=== PATIENT | female | born 2000 | race African-American/Black ===

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

== ENCOUNTER 2019-01-03 18:31 | Emergency (ER) | payer OTHER, MEDICAID ==
--- NOTE | 2019-01-03 19:47 | ER Document Report ---
ED Medical Screen (RME) - General Chief Complaint: Abdominal Pain Stated Complaint: ABDOMINAL PAIN Time Seen by Provider: 01/03/19 19:39 Primary Care Provider: DAVE CARY DO [Primary Care Provider] - Follow up as needed Mode of Arrival: Ambulatory Information source: Patient Notes: This 18-year-old female presents emergency department with the urge to urinate frequently and diarrhea every hour since Wednesday. Patient reports he is taken Imodium without relief of the diarrhea. Reports she has not been on antibiotics recently not been overseas recently. Reports she is eating drinking fine. Reports she may have lost 7 pounds. She denies fever and vomiting. She reports no other family members ill. She did take out family members Phenergan and it did not help her. I have greeted and performed a rapid initial assessment of this patient. A comprehensive ED assessment and evaluation of the patient, analysis of test results and completion of the medical decision making process will be conducted by additional ED providers. Dictation of this chart was performed using voice recognition software; therefore, there may be some unintended grammatical errors. TRAVEL OUTSIDE OF THE [place] IN LAST 30 DAYS: No - Related Data Allergies/Adverse Reactions: No Known Allergies Allergy (Verified 01/03/19 18:32) Past Medical History - Social History Frequency of alcohol use: None Drug Abuse: None Renal/ Medical History: Denies: Hx Peritoneal Dialysis Physical Exam - Vital signs Vitals: Temp Pulse Resp BP Pulse Ox 97.8 F 113 H 18 114/65 100 01/03/19 18:34 01/03/19 18:34 01/03/19 18:34 01/03/19 18:34 01/03/19 18:34 Course - Vital Signs Vital signs: Temp Pulse Resp BP Pulse Ox 97.8 F 113 H 18 114/65 100 01/03/19 18:34 01/03/19 18:34 01/03/19 18:34 01/03/19 18:34 01/03/19 18:34 Doctor's Discharge - Discharge Referrals: DAVE CARY DO [Primary Care Provider] - Follow up as needed
[2019-01-03 20:10] LABS: ABSOLUTE EOSINOPHILS # (AUTO) 0.3 10^3/uL (0.0-0.6); ABSOLUTE LYMPHOCYTES (AUTO) 3.3 10^3/uL (0.5-4.7); ABSOLUTE MONOCYTES (AUTO) 0.5 10^3/uL (0.1-1.4); ABSOLUTE NEUT (AUTO) 2.6 10^3/uL (1.7-8.2); BASOPHILS % (AUTO) 0.6 % (0-2); EOSINOPHILS % (AUTO) 4.1 % (0-6); HEMATOCRIT 41.3 % (36.0-47.0); HEMOGLOBIN 13.5 g/dL (12.0-15.5); MEAN CORPUSCULAR HEMOGLOBIN 28.6 pg (27.0-33.4); MEAN CORPUSCULAR HGB CONC 32.7 g/dL (32.0-36.0); MEAN CORPUSCULAR VOLUME 88 fl (80-97); MONOCYTES % (AUTO) 7.3 % (3-13); PLATELET COUNT 297 10^3/uL (150-450); RED BLOOD COUNT 4.72 10^6/uL (3.72-5.28); RED CELL DISTRIBUTION WIDTH 14.2 % (11.5-14.0); TOTAL CELLS COUNTED % (AUTO) 100 %; WHITE BLOOD COUNT 6.7 10^3/uL (4.0-10.5)
[2019-01-03 20:22] LABS: APPEARANCE,URINE SLIGHTLY-CLOUDY; BILIRUBIN,URINE NEGATIVE (NEGATIVE); COLOR,URINE YELLOW; GLUCOSE, URINE NEGATIVE (NEGATIVE); KETONES,URINE NEGATIVE (NEGATIVE); LEUKOCYTE ESTERASE,URINE TRACE (NEGATIVE); NITRITE,URINE NEGATIVE (NEGATIVE); PROTEIN,URINE NEGATIVE (NEGATIVE); URINE SPECIFIC GRAVITY 1.019
--- NOTE | 2019-01-03 20:22 | RADIOLOGY REPORT (SQ) ---
EXAM DESCRIPTION: Supine KUB. CLINICAL HISTORY: 18 years Female, abd pain diarrhea COMPARISON: None. FINDINGS: Bowel pattern is unremarkable. No suspicious soft tissue calcific abnormalities. IMPRESSION: Unremarkable KUB.
[2019-01-03 20:30] LABS: ALANINE AMINOTRANSFERASE 15 U/L (5-35); ALBUMIN 4.8 g/dL (3.7-5.6); ALKALINE PHOSPHATASE 49 U/L (50-135); ANION GAP 12 (5-19); ASPARTATE AMINO TRANSFERASE 24 U/L (5-30); BILIRUBIN,DIRECT 0.1 mg/dL (0.0-0.4); BILIRUBIN,TOTAL 0.7 mg/dL (0.2-1.3); BLOOD UREA NITROGEN 11 mg/dL (7-20); CALCIUM 10.1 mg/dL (8.4-10.2); CARBON DIOXIDE 24 mmol/L (22-30); CHLORIDE 104 mmol/L (98-107); GLUCOSE 78 mg/dL (75-110); POTASSIUM 3.8 mmol/L (3.6-5.0); SODIUM 139.7 mmol/L (137-145); TOTAL PROTEIN 8.4 g/dL (6.3-8.2)
--- NOTE | 2019-01-03 23:39 | ER Document Report ---
ED General - General Chief Complaint: Abdominal Pain Stated Complaint: ABDOMINAL PAIN Time Seen by Provider: 01/03/19 19:39 Primary Care Provider: DAVE CARY DO [ACTIVE STAFF] - Follow up as needed Mode of Arrival: Ambulatory Notes: 18-year-old healthy female presents emergency department with chief complaint of urinary frequency and urgency, and profuse diarrhea every hour since Wednesday. Patient states she has taken Imodium without relief of the diarrhea. No recent antibiotics. No overseas travel. Appetite is normal. Denies fever or vomiting. She was at a over the weekend and did eat food afterwards but there were no other sick contacts. She was also in a pool and ingested a large amount of water. She does have suprapubic abdominal pain. No other complaints TRAVEL OUTSIDE OF THE [place] IN LAST 30 DAYS: No - Related Data Allergies/Adverse Reactions: No Known Allergies Allergy (Verified 01/03/19 18:32) Past Medical History - General Information source: Patient - Social History Smoking Status: Never Smoker Frequency of alcohol use: None Drug Abuse: None Family History: Reviewed & Not Pertinent Patient has suicidal ideation: No Patient has homicidal ideation: No Renal/ Medical History: Denies: Hx Peritoneal Dialysis Review of Systems - Review of Systems Constitutional: See HPI EENT: See HPI Cardiovascular: See HPI Respiratory: No symptoms reported Gastrointestinal: See HPI Genitourinary: See HPI Female Genitourinary: See HPI Musculoskeletal: No symptoms reported Skin: No symptoms reported Hematologic/Lymphatic: No symptoms reported Neurological/Psychological: No symptoms reported Physical Exam - Vital signs Vitals: Temp Pulse Resp BP Pulse Ox 97.8 F 113 H 18 114/65 100 01/03/19 18:34 01/03/19 18:34 01/03/19 18:34 01/03/19 18:34 01/03/19 18:34 - Notes Notes: PHYSICAL EXAMINATION: Reviewed vital signs and charting by RN GENERAL: Alert, interacts well. No acute distress. HEAD: Normocephalic, atraumatic. EYES: Pupils equal and round. Extraocular movements intact. ENT: Oral mucosa moist, tongue midline. NECK: Full range of motion. Trachea midline. LUNGS: Clear to auscultation bilaterally, no wheezes, rales, or rhonchi. No respiratory distress. HEART: Regular rate and rhythm. No murmur ABDOMEN: soft, suprapubic tenderness. No distention. Bowel sounds present EXTREMITIES: Moves all 4 extremities spontaneously. No edema, No cyanosis. PSYCH: Normal affect, normal mood. SKIN: Warm, dry, normal turgor. No rashes or lesions noted. Course - Re-evaluation Re-evalutation: 01/03/19 23:36 Overall well-appearing. Afebrile. Patient still has profuse diarrhea. KUB normal. Urinalysis unremarkable. I will send urine for culture. At this time patient has a very reassuring physical exam and I do not suspect an infectious source but could be viral. No evidence of dehydration on labs or clinical exam. Patient has been given anticipatory guidance and strict follow on precautions. Stable for discharge 01/03/19 23:38 - Vital Signs Vital signs: Temp Pulse Resp BP Pulse Ox 97.8 F 113 H 18 114/65 100 01/03/19 18:34 01/03/19 18:34 01/03/19 18:34 01/03/19 18:34 01/03/19 18:34 - Laboratory Result Diagrams: 01/03/19 20:00 01/03/19 20:00 Laboratory results interpreted by me: 01/03/19 01/03/19 01/03/19 20:00 20:00 20:00 RDW 14.2 H Seg Neutrophils % 39.0 L Lymphocytes % 49.0 H Alkaline Phosphatase 49 L Total Protein 8.4 H Urine Urobilinogen 2.0 H Ur Leukocyte Esterase TRACE H Discharge - Discharge Clinical Impression: Urinary frequency, Urinary urgency Diarrhea Qualifiers: Diarrhea type: presumed infectious Qualified Code(s): R19.7 - Diarrhea, unspe cified Condition: Good Disposition: HOME, SELF-CARE Additional Instructions: You were seen in the emergency department this evening for diarrhea and urinary symptoms. Your urinalysis did not show a clear-cut UTI but I have sent your urine for culture. If it does grow out some type of bacteria you will need to call from the culture nurse and placed on an appropriate antibiotic. Is unclear why you are having the diarrhea but because you were recently at a that could be a potential source or ingesting water in a pool could cause diarrhea as well. Nonetheless your work-up was very reassuring and it should pass in the next several days. If you do continue to have profuse watery diarrhea over the next several days please return here for reevaluation or follow-up with your primary doctor. If you develop fevers or chills, intractable nausea or vomiting, acute shortness of breath or chest pain, or any other concerning symptoms please merely return to the emergency department. Referrals: DAVE CARY DO [ACTIVE STAFF] - Follow up as needed
[2019-01-04 00:13] VITALS: BP 120/74
== END 2019-01-04 00:05 | disposition home or self-care (01) ==
LOC: ER 18:31
DX: R35.0 Frequency of micturition (principal); R39.15 Urgency of urination; R19.7 Diarrhea, unspecified; R10.30 Lower abdominal pain, unspecified
CPT/HCPCS: 36415; 74018; 80053; 81001; 81025; 85025; 87086; 87088; 99284

== ENCOUNTER 2019-03-18 20:08 | Emergency (ER) | payer OTHER, MEDICAID ==
[2019-03-18 22:21] LABS: APPEARANCE,URINE CLEAR; BILIRUBIN,URINE NEGATIVE (NEGATIVE); COLOR,URINE YELLOW; GLUCOSE, URINE NEGATIVE (NEGATIVE); KETONES,URINE NEGATIVE (NEGATIVE); LEUKOCYTE ESTERASE,URINE NEGATIVE (NEGATIVE); NITRITE,URINE NEGATIVE (NEGATIVE); PROTEIN,URINE 30 mg/dL (NEGATIVE); URINE SPECIFIC GRAVITY 1.016
--- NOTE | 2019-03-19 00:26 | ER Document Report ---
ED General - General Chief Complaint: Pain With Urination Stated Complaint: ABDOMINAL PAIN,CONSTIPATION,SINUS Time Seen by Provider: 03/18/19 23:03 Primary Care Provider: RAFAELA JUSTICE MD [Primary Care Provider] - Follow up as needed Notes: Patient is a 18-year-old female that comes emergency department for chief c omplaint of lower abdominal pain on both sides for the past several days with intermittent constipation, occasional discomfort with urination. She denies vaginal discharge, flank pain, fever/chills, nausea/vomiting. She states she is frequently constipated but she did have a normal bowel movement earlier. Patient also states that today she started getting congested and has a lot of running of her nose but she denies sore throat, cough, fever, headache, or ear pain. Patient denies any daily medications or past medical history. TRAVEL OUTSIDE OF THE [place] IN LAST 30 DAYS: No - Related Data Allergies/Adverse Reactions: No Known Allergies Allergy (Verified 01/03/19 18:32) Past Medical History - General Information source: Patient - Social History Smoking Status: Never Smoker Chew tobacco use (# tins/day): No Drug Abuse: None Lives with: Family Family History: Reviewed & Not Pertinent Patient has suicidal ideation: No Patient has homicidal ideation: No Renal/ Medical History: Denies: Hx Peritoneal Dialysis - Immunizations Immunizations up to date: Yes Hx Diphtheria, Pertussis, Tetanus Vaccination: Yes Review of Systems - Review of Systems Constitutional: See HPI EENT: See HPI Cardiovascular: No symptoms reported Respiratory: No symptoms reported Gastrointestinal: See HPI Genitourinary: See HPI Female Genitourinary: No symptoms reported Musculoskeletal: No symptoms reported Skin: No symptoms reported Hematologic/Lymphatic: No symptoms reported Neurological/Psychological: No symptoms reported Physical Exam - Vital signs Vitals: Temp Pulse Resp BP Pulse Ox 98.0 F 87 16 128/83 H 100 03/18/19 20:20 03/18/19 20:20 03/18/19 20:20 03/18/19 20:20 03/18/19 20:20 - Notes Notes: GENERAL: Alert, interacts well. No acute distress. HEAD: Normocephalic, atraumatic. EYES: Pupils equal, round, and reactive to light. Extraocular movements intact. ENT: Oral mucosa moist, tongue midline. Oropharynx unremarkable. Airway patent. Rhinorrhea and sinus congestion with frequent sniffing. Nontender sinuses. NECK: Full range of motion. Supple. Trachea midline. LUNGS: Clear to auscultation bilaterally, no wheezes, rales, or rhonchi. No respiratory distress. HEART: Regular rate and rhythm. No murmur ABDOMEN: Minimal tenderness of the lower abdomen which is very general. No guarding or rigidity. Normal bowel sounds. GENITOURINARY: Small amount of scattered whitish discharge, nontender cervix, no lesions, unremarkable otherwise. Exam performed with Judy LIND at bedside. EXTREMITIES: Moves all 4 extremities spontaneously. No edema, normal radial and dorsalis pedis pulses bilaterally. No cyanosis. BACK: no cervical, thoracic, lumbar midline tenderness. No saddle anesthesia, normal distal neurovascular exam. Moves all extremities in full range of motion. NEUROLOGICAL: Alert and oriented x3. Normal speech. Cranial nerves II through XII grossly intact. PSYCH: Normal affect, normal mood. SKIN: Warm, dry, normal turgor. No rashes or lesions noted. Course - Re-evaluation Re-evalutation: CBC, chemistry unremarkable. Urinalysis unremarkable. Pelvic exam performed after discussion of options with patient, she elected for this, this shows positive yeast but otherwise is unremarkable. She was treated for yeast. Patient has sinus congestion and drainage suggesting viral illness but her physical exam is very unremarkable otherwise with only minimal abdominal tenderness. I have a very low suspicion of acute abdomen. Patient recommended to take stool softeners because of her frequent constipation, discussed return precautions, discussed primary care follow-up. Patient states appreciation and agreement. Stable at time of discharge. - Vital Signs Vital signs: Temp Pulse Resp BP Pulse Ox 98.3 F 82 18 118/72 100 03/19/19 02:40 03/19/19 02:40 03/19/19 02:40 03/19/19 02:40 03/19/19 02:40 - Laboratory Result Diagrams: 03/19/19 00:35 03/19/19 00:35 Laboratory results interpreted by me: 03/18/19 03/19/19 21:50 00:35 RDW 14.3 H Lymph % (Auto) 50.9 H Seg Neutrophils % 39.3 L Urine Protein 30 H Urine Urobilinogen 2.0 H Discharge - Discharge Clinical Impression: Lower abdominal pain, Sinus congestion, Vaginal discharge Condition: Stable Disposition: HOME, SELF-CARE Additional Instructions: Your work-up shows a yeast infection but no concerning findings otherwise. Your evaluation is most consistent with a viral illness, use the Flonase nasal spray and Sudafed to help with this, you can take an antihistamine such as Benadryl at night to help with this as well. You have been treated for these infection. For the lower abdominal pain I recommend [id number] stool softener such as Colace to help with this. Stay hydrated, increase fiber in your diet. Follow-up with primary care. Return for any concerning symptoms including severe worsening pain, vomiting, difficulty breathing, fever, or any other concerning symptoms. Prescriptions: Fluticasone Propionate [Flonase Nasal [place] 50 Mcg/[place] 16 gm] 2 sprays NASL Q12 #1 inhaler Pseudoephedrine HCl [Sudafed 12 Hour] 120 mg PO Q12 PRN #14 tablet.er PRN Reason: Referrals: RAFAELA JUSTICE MD [Primary Care Provider] - Follow up as needed
[2019-03-19 00:40] LABS: RBCS (WET MOUNT) NO RBCS SEEN; T.VAGINALIS (WET MOUNT) NO TRICHOMONAS SEEN; WBCS (WET MOUNT) FEW WBCS SEEN; YEAST (WET MOUNT) YEAST SEEN
[2019-03-19 00:50] LABS: ABSOLUTE EOSINOPHILS # (AUTO) 0.1 10^3/uL (0.0-0.6); ABSOLUTE LYMPHOCYTES (AUTO) 3.5 10^3/uL (0.5-4.7); ABSOLUTE MONOCYTES (AUTO) 0.5 10^3/uL (0.1-1.4); ABSOLUTE NEUT (AUTO) 2.7 10^3/uL (1.7-8.2); BASOPHILS % (AUTO) 0.7 % (0-2); HEMATOCRIT 38.6 % (36.0-47.0); HEMOGLOBIN 12.7 g/dL (12.0-15.5); LYMPHOCYTES % (AUTO) 50.9 % (13-45); MEAN CORPUSCULAR HEMOGLOBIN 28.6 pg (27.0-33.4); MEAN CORPUSCULAR HGB CONC 32.9 g/dL (32.0-36.0); MEAN CORPUSCULAR VOLUME 87 fl (80-97); MONOCYTES % (AUTO) 7.1 % (3-13); PLATELET COUNT 268 10^3/uL (150-450); RED BLOOD COUNT 4.43 10^6/uL (3.72-5.28); RED CELL DISTRIBUTION WIDTH 14.3 % (11.5-14.0); SEGMENTED NEUTROPHILS % (AUTO) 39.3 % (42-78); TOTAL CELLS COUNTED % (AUTO) 100 %; WHITE BLOOD COUNT 6.9 10^3/uL (4.0-10.5)
[2019-03-19 01:04] LABS: ANION GAP 11 (5-19); BLOOD UREA NITROGEN 12 mg/dL (7-20); CALCIUM 9.8 mg/dL (8.4-10.2); CARBON DIOXIDE 25 mmol/L (22-30); CHLORIDE 104 mmol/L (98-107); GLUCOSE 95 mg/dL (75-110); POTASSIUM 3.6 mmol/L (3.6-5.0)
[2019-03-19] MEDS ORDERED: FLUCONAZOLE 100 MG TABLET PO ONE (01:31)
[2019-03-19 02:01] LABS: CHLAM PCR NOT DETECTED (NOT DETECT)
[2019-03-19 02:40] VITALS: BP 118/72
== END 2019-03-19 02:40 | disposition home or self-care (01) ==
LOC: ER 20:08
DX: K59.00 Constipation, unspecified (principal); R10.30 Lower abdominal pain, unspecified; R30.0 Dysuria; N89.8 Other specified noninflammatory disorders of vagina; R09.81 Nasal congestion; J34.89 Other specified disorders of nose and nasal sinuses; B37.9 Candidiasis, unspecified
CPT/HCPCS: 36415; 80048; 81001; 81025; 85025; 87210; 87491; 87591; 99284

== ENCOUNTER 2019-04-10 22:23 | Emergency (ER) | payer OTHER ==
[2019-04-10] MEDS ORDERED: ONDANSETRON 4 MG TAB.RAPDIS PO ONE (22:42)
--- NOTE | 2019-04-10 22:42 | ER Document Report ---
ED Medical Screen (RME) - General Chief Complaint: Nausea/Vomiting/Diarrhea Stated Complaint: VOMITING Time Seen by Provider: 04/10/19 22:39 Primary Care Provider: RAFAELA JUSTICE MD [Primary Care Provider] - Follow up as needed Mode of Arrival: Ambulatory Information source: Patient Notes: 19-year-old female presents to ED for complaint of generalized abdominal cr amping nausea vomiting and diarrhea since 6 AM this morning. She states she is vomited 4 times and had 3 or 4 diarrheal stools. States last menstrual period was April 06, 2019 she does not smoke she does not drink and she does not do any drugs. She is alert oriented respirations regular and unlabored speaking in full sentences walks with even steady gait. He denies any fevers. TRAVEL OUTSIDE OF THE [place] IN LAST 30 DAYS: No - Related Data Allergies/Adverse Reactions: No Known Allergies Allergy (Verified 01/03/19 18:32) Past Medical History Renal/ Medical History: Denies: Hx Peritoneal Dialysis - Immunizations Immunizations up to date: Yes Hx Diphtheria, Pertussis, Tetanus Vaccination: Yes Physical Exam - Vital signs Vitals: Temp Pulse Resp BP Pulse Ox 98.4 F 92 16 104/63 100 04/10/19 22:29 04/10/19 22:29 04/10/19 22:29 04/10/19 22:29 04/10/19 22:29 Course - Vital Signs Vital signs: Temp Pulse Resp BP Pulse Ox 98.4 F 92 16 104/63 100 04/10/19 22:29 04/10/19 22:29 04/10/19 22:29 04/10/19 22:29 04/10/19 22:29 Doctor's Discharge - Discharge Referrals: RAFAELA JUSTICE MD [Primary Care Provider] - Follow up as needed
[2019-04-10 23:50] LABS: ABSOLUTE EOSINOPHILS # (AUTO) 0.2 10^3/uL (0.0-0.6); ABSOLUTE LYMPHOCYTES (AUTO) 3.3 10^3/uL (0.5-4.7); ABSOLUTE MONOCYTES (AUTO) 0.3 10^3/uL (0.1-1.4); ABSOLUTE NEUT (AUTO) 2.8 10^3/uL (1.7-8.2); BASOPHILS % (AUTO) 0.7 % (0-2); EOSINOPHILS % (AUTO) 3.2 % (0-6); HEMATOCRIT 39.8 % (36.0-47.0); HEMOGLOBIN 12.9 g/dL (12.0-15.5); LYMPHOCYTES % (AUTO) 49.8 % (13-45); MEAN CORPUSCULAR HEMOGLOBIN 28.2 pg (27.0-33.4); MEAN CORPUSCULAR HGB CONC 32.4 g/dL (32.0-36.0); MEAN CORPUSCULAR VOLUME 87 fl (80-97); MONOCYTES % (AUTO) 4.7 % (3-13); PLATELET COUNT 270 10^3/uL (150-450); RED BLOOD COUNT 4.57 10^6/uL (3.72-5.28); RED CELL DISTRIBUTION WIDTH 14.4 % (11.5-14.0); SEGMENTED NEUTROPHILS % (AUTO) 41.6 % (42-78); TOTAL CELLS COUNTED % (AUTO) 100 %; WHITE BLOOD COUNT 6.6 10^3/uL (4.0-10.5)
[2019-04-11] MEDS ORDERED: NORMAL SALINE 1000 ML 1,000 ML IV ONE (00:03)
[2019-04-11 00:04] LABS: APPEARANCE,URINE CLEAR; BILIRUBIN,URINE NEGATIVE (NEGATIVE); COLOR,URINE YELLOW; GLUCOSE, URINE NEGATIVE (NEGATIVE); KETONES,URINE NEGATIVE (NEGATIVE); PROTEIN,URINE NEGATIVE (NEGATIVE); URINE SPECIFIC GRAVITY 1.021
[2019-04-11 00:11] LABS: ALBUMIN 4.7 g/dL (3.5-5.0); ALKALINE PHOSPHATASE 48 U/L (38-126); ANION GAP 13 (5-19); ASPARTATE AMINO TRANSFERASE 24 U/L (14-36); BILIRUBIN,DIRECT 0.1 mg/dL (0.0-0.4); BILIRUBIN,TOTAL 0.8 mg/dL (0.2-1.3); BLOOD UREA NITROGEN 16 mg/dL (7-20); CALCIUM 10.4 mg/dL (8.4-10.2); CARBON DIOXIDE 25 mmol/L (22-30); CHLORIDE 105 mmol/L (98-107); GLUCOSE 86 mg/dL (75-110); POTASSIUM 4.1 mmol/L (3.6-5.0); TOTAL PROTEIN 8.4 g/dL (6.3-8.2)
--- NOTE | 2019-04-11 00:28 | ER Document Report ---
ED GI/ - General Chief Complaint: Abdominal Pain Stated Complaint: VOMITING Time Seen by Provider: 04/10/19 22:39 Primary Care Provider: RAFAELA JUSTICE MD [ACTIVE STAFF] - Follow up as needed Mode of Arrival: Ambulatory Notes: Patient is a otherwise healthy 19-year-old female presents to the emergency department generalized nausea, vomiting, diarrhea that started this morning. Patient was that she has had 4 episodes of nonbloody emesis and 3 episodes of nonbloody diarrhea. She is also denying any dark black tarry stools. Patient's denying any dysuria, vaginal discharge, fever. States she has slight intermittent left upper quadrant cramping. TRAVEL OUTSIDE OF THE [place] IN LAST 30 DAYS: No - Related Data Allergies/Adverse Reactions: No Known Allergies Allergy (Verified 04/10/19 23:04) Past Medical History - General Information source: Patient - Social History Smoking Status: Never Smoker Chew tobacco use (# tins/day): No Frequency of alcohol use: None Drug Abuse: None Family History: Reviewed & Not Pertinent Patient has suicidal ideation: No Patient has homicidal ideation: No Renal/ Medical History: Denies: Hx Peritoneal Dialysis - Immunizations Immunizations up to date: Yes Hx Diphtheria, Pertussis, Tetanus Vaccination: Yes Review of Systems - Review of Systems Constitutional: denies: Fever EENT: No symptoms reported Cardiovascular: No symptoms reported Respiratory: No symptoms reported Gastrointestinal: See HPI Genitourinary: See HPI Female Genitourinary: No symptoms reported Musculoskeletal: No symptoms reported Skin: No symptoms reported Hematologic/Lymphatic: No symptoms reported Neurological/Psychological: No symptoms reported Physical Exam - Vital signs Vitals: Temp Pulse Resp BP Pulse Ox 98.4 F 92 16 104/63 100 04/10/19 22:29 04/10/19 22:29 04/10/19 22:29 04/10/19 22:29 04/10/19 22:29 - Notes Notes: GENERAL: Alert, interacts well. No acute distress. HEAD: Normocephalic, atraumatic. EYES: Pupils equal, round, and reactive to light. Extraocular movements intact. ENT: Oral mucosa moist, tongue midline. NECK: Full range of motion. Supple. Trachea midline. LUNGS: Clear to auscultation bilaterally, no wheezes, rales, or rhonchi. No respiratory distress. HEART: Regular rate and rhythm. No murmur ABDOMEN: Soft, slight left upper quadrant abdominal pain noted, otherwise abdominal exam benign. Non-distended. Bowel sounds present in all 4 quadrants. EXTREMITIES: Moves all 4 extremities spontaneously. No edema, normal radial and dorsalis pedis pulses bilaterally. No cyanosis. BACK: no cervical, thoracic, lumbar midline tenderness. No saddle anesthesia, normal distal neurovascular exam. No CVA tenderness noted bilaterally. NEUROLOGICAL: Alert and oriented x3. Normal speech. cranial nerves II through XII grossly intact. PSYCH: Normal affect, normal mood. SKIN: Warm, dry, normal turgor. No rashes or lesions noted. Course - Re-evaluation Re-evalutation: 04/11/19 00:25 Laboratory 04/10/19 04/10/19 04/10/19 23:19 23:19 23:19 WBC 6.6 RBC 4.57 Hgb 12.9 Hct 39.8 MCV 87 MCH 28.2 MCHC 32.4 RDW 14.4 H Plt Count 270 Lymph % (Auto) 49.8 H [place] % (Auto) 4.7 Eos % (Auto) 3.2 Baso % (Auto) 0.7 Absolute Neuts (auto) 2.8 Absolute Lymphs (auto) 3.3 Absolute Monos (auto) 0.3 Absolute Eos (auto) 0.2 Absolute Basos (auto) 0.0 Seg Neutrophils % 41.6 L Sodium 142.8 Potassium 4.1 Chloride 105 Carbon Dioxide 25 Anion Gap 13 BUN 16 Creatinine 0.91 Est GFR ( Amer) > 60 Est GFR (MDRD) Non-Af > 60 Glucose 86 Calcium 10.4 H Total Bilirubin 0.8 Direct Bilirubin 0.1 Neonat Total Bilirubin Not Reportable Neonat Direct Bilirubin Not Reportable Neonat Indirect Bili Not Reportable AST 24 ALT 10 Alkaline Phosphatase 48 Total Protein 8.4 H Albumin 4.7 Lipase 98.3 Serum HCG, Qual NEGATIVE Urine Color Urine Appearance Urine pH Ur Specific [place] Urine Protein Urine Glucose (UA) Urine Ketones Urine Blood Urine Nitrite (Reflex) Urine Bilirubin Urine Urobilinogen Leukocyte Esterase Rfl Urine RBC (Auto) Urine WBC (Reflex) Squamous Epi Cells Auto Urine Mucus (Auto) Urine Ascorbic Acid 04/10/19 23:38 WBC RBC Hgb Hct MCV MCH MCHC RDW Plt Count Lymph % (Auto) [place] % (Auto) Eos % (Auto) Baso % (Auto) Absolute Neuts (auto) Absolute Lymphs (auto) Absolute Monos (auto) Absolute Eos (auto) Absolute Basos (auto) Seg Neutrophils % Sodium Potassium Chloride Carbon Dioxide Anion Gap BUN Creatinine Est GFR ( Amer) Est GFR (MDRD) Non-Af Glucose Calcium Total Bilirubin Direct Bilirubin Neonat Total Bilirubin Neonat Direct Bilirubin Neonat Indirect Bili AST ALT Alkaline Phosphatase Total Protein Albumin Lipase Serum HCG, Qual Urine Color YELLOW Urine Appearance CLEAR Urine pH 6.0 Ur Specific [place] 1.021 Urine Protein NEGATIVE Urine Glucose (UA) NEGATIVE Urine Ketones NEGATIVE Urine Blood SMALL H Urine Nitrite (Reflex) NEGATIVE Urine Bilirubin NEGATIVE Urine Urobilinogen 2.0 H Leukocyte Esterase Rfl NEGATIVE Urine RBC (Auto) 1 Urine WBC (Reflex) 1 Squamous Epi Cells Auto 1 Urine Mucus (Auto) RARE Urine Ascorbic Acid NEGATIVE Patient's physical exam reveals slight left upper quadrant tenderness, most consistent with her generalized nausea, vomiting. Otherwise abdominal exam is benign. After fluids in the emergency department and antinausea medication patient voices she feels better. Patient has been able to drink fluids with no further episodes of vomiting. Discussed close follow-up with primary care provider with close return precautions. Patient stable for discharge. - Vital Signs Vital signs: Temp Pulse Resp BP Pulse Ox 98.4 F 92 16 104/63 100 04/10/19 22:29 04/10/19 22:29 04/10/19 22:29 04/10/19 22:29 04/10/19 22:29 - Laboratory Result Diagrams: 04/10/19 23:19 04/10/19 23:19 Laboratory results interpreted by me: 04/10/19 04/10/19 04/10/19 23:19 23:19 23:38 RDW 14.4 H Lymph % (Auto) 49.8 H Seg Neutrophils % 41.6 L Calcium 10.4 H Total Protein 8.4 H Urine Blood SMALL H Urine Urobilinogen 2.0 H Discharge - Discharge Clinical Impression: Nausea vomiting and diarrhea Condition: Stable Disposition: HOME, SELF-CARE Instructions: Antinausea Medication ([facility]), Viral Syndrome ([facility]), Vomiting ([facility]), Diarrhea, Nonspecific ([facility]) Additional Instructions: As we discussed you have been seen and treated in the emergency department for nausea, vomiting, diarrhea. Please make sure you use nausea medication as pres cribed. Please also try to stay well-hydrated with clear liquids. Please follow-up with your primary care provider in the next 12 to 24 hours. Return to the emergency room for any concerns. Prescriptions: Ondansetron [Zofran Odt 4 mg Tablet] 1 tab PO Q6 PRN #10 tab.rapdis PRN Reason: For Nausea/Vomiting Forms: Return to Work Referrals: RAFAELA JUSTICE MD [ACTIVE STAFF] - Follow up as needed
[2019-04-11 01:47] VITALS: BP 129/79
== END 2019-04-11 01:30 | disposition home or self-care (01) ==
LOC: ER 22:23
DX: R11.2 Nausea with vomiting, unspecified (principal); R19.7 Diarrhea, unspecified; R10.12 Left upper quadrant pain; R10.812 Left upper quadrant abdominal tenderness
CPT/HCPCS: 36415; 83690; 84703; 85025; 80053; 81001; S0119; J7030; 96360; 99284

== ENCOUNTER 2019-08-06 02:01 | Emergency (ER) | payer OTHER ==
[2019-08-06] MEDS ORDERED: KETOROLAC TROMETHAMINE 60 MG/2 ML SDV IM ONE (04:36)
--- NOTE | 2019-08-06 04:41 | ER Document Report ---
ED Respiratory Problem - General Chief Complaint: Cold Symptoms Stated Complaint: HEAD PAIN/TROUBLE BREATHING Time Seen by Provider: 08/06/19 04:24 Notes: CHIEF COMPLAINT: Sinus congestion for 4 days HPI: 19-year-old female who does not smoke presenting for 4 days of worsening facial and sinus congestion and pressure. States that she attempted to use the medication she was placed on 6 months ago when she was seen at the hospital for same complaint which was Sudafed and Flonase without resolution of symptoms. No fever. Patient states that the discomfort and pressure became too much tonight so she decided to come in for evaluation ROS: See HPI - all other systems were reviewed and are otherwise negative Constitutional: no fever Eyes: no drainage, no blurred vision ENT: Positive runny nose, no sore throat Cardiovascular: no chest pain Resp: no SOB, no cough GI: no vomiting, no diarrhea, no abdominal pain : no dysuria Integumentary: no rash Allergy: no hives Musculoskeletal: no extremity pain or swelling Neurological: no numbness/tingling, no weakness, positive frontal headache MEDICATIONS: I agree with the patient medications as charted by the RN. ALLERGIES: I agree with the allergies as charted by the RN. PAST MEDICAL HISTORY/PAST SURGICAL HISTORY: Reviewed and agree as charted by RN. SOCIAL HISTORY: Reviewed and agree as charted by RN. FAMILY HISTORY: No significant familial comorbid conditions directly related to patient complaint EXAM: Reviewed vital signs as charted by RN. CONSTITUTIONAL: Alert and oriented and responds appropriately to questions. Well-appearing; well-nourished, no acute distress HEAD: Normocephalic; atraumatic, EYES: PERRL; Conjunctivae clear, sclerae non-icteric ENT: normal nose; positive clear rhinorrhea; moist mucous membranes; pharynx without lesions noted, no uvula edema or deviation, no tonsillar hypertrophy, phonation normal, mild tenderness over the frontal sinuses NECK: Supple without meningismus; non-tender; no cervical lymphadenopathy, no masses CARD: RRR; no murmurs, no clicks, no rubs, no gallops; symmetric distal pulses RESP: Normal chest excursion without splinting or tachypnea; breath sounds clear and equal bilaterally; no wheezes, no rhonchi, no rales, pulse oximetry 99% on room air not hypoxic ABD/GI: Normal bowel sounds; non-distended; soft, non-tender BACK: The back appears normal and is non-tender to palpation, there is no CVA tenderness EXT: Normal ROM in all joints; non-tender to palpation; no cyanosis, no effusions, no edema SKIN: Normal color for age and race; warm; dry; good turgor; no acute lesions noted NEURO: Moves all extremities equally; Motor and sensory function intact PSYCH: The patient's mood and manner are appropriate. Grooming and personal hygiene are appropriate. MDM: 19-year-old female presenting with 4 days of sinus congestion and discomfort. Has been taking Sudafed and Flonase at home. Will switch patient to Mucinex, placed on Z-Roberto for sinus infection given her history, follow-up PCP TRAVEL OUTSIDE OF THE [place] IN LAST 30 DAYS: No - Related Data Allergies/Adverse Reactions: No Known Allergies Allergy (Verified 04/10/19 23:04) Past Medical History - Social History Smoking Status: Never Smoker Chew tobacco use (# tins/day): No Frequency of alcohol use: None Drug Abuse: None Family History: Reviewed & Not Pertinent Patient has suicidal ideation: No Patient has homicidal ideation: No Renal/ Medical History: Denies: Hx Peritoneal Dialysis - Immunizations Immunizations up to date: Yes Hx Diphtheria, Pertussis, Tetanus Vaccination: Yes Physical Exam - Vital signs Vitals: Temp Pulse Resp BP Pulse Ox 98.2 F 120 H 18 120/85 100 08/06/19 02:07 08/06/19 02:07 08/06/19 02:07 08/06/19 02:07 08/06/19 02:07 Course - Vital Signs Vital signs: Temp Pulse Resp BP Pulse Ox 98.2 F 99 18 120/85 100 08/06/19 02:07 08/06/19 02:14 08/06/19 02:07 08/06/19 02:07 08/06/19 02:07 Discharge - Discharge Clinical Impression: Sinusitis chronic, frontal Condition: Stable Disposition: HOME, SELF-CARE Instructions: Sinusitis ([facility]) Additional Instructions: Take the medications as prescribed. Follow-up with a primary care provider for reevaluation of symptoms call for appointment Prescriptions: Guaifenesin/Dextromethorphan [Mucinex Dm ER 600-30 mg Tablet] 1 each PO BID #10 tab.er.12h Diclofenac Sodium [Voltaren 50 Mg Tablet.Dr] 50 mg PO BID #20 tablet. Azithromycin [Zithromax 250 mg Tablet] 250 mg PO ASDIR PRN #6 tablet PRN Reason: Referrals: OVI SILVA MD [ACTIVE STAFF] - Follow up as needed
[2019-08-06 05:50] VITALS: BP 126/70
== END 2019-08-06 05:51 | disposition home or self-care (01) ==
LOC: ER 02:01
DX: J32.1 Chronic frontal sinusitis (principal); R51 Headache; R09.81 Nasal congestion; R09.89 Other specified symptoms and signs involving the circulatory and respiratory systems; Z79.899 Other long term (current) drug therapy
CPT/HCPCS: 99283; 96372; 81025; J1885

== ENCOUNTER 2019-10-03 07:00 | Emergency (ER) | payer OTHER ==
[2019-10-03] MEDS ORDERED: KETAMINE HCL INJ 500 MG/10 ML VIAL IV ONE (07:34)
[2019-10-03] MEDS ORDERED: HALOPERIDOL LACTATE INJ 5 MG/1 ML VIAL IM ONE (07:47)
[2019-10-03] MEDS ORDERED: BENZTROPINE MESYLATE INJ 2 MG/2 ML AMPULE IM ONE (07:48)
--- NOTE | 2019-10-03 08:06 | ER Document Report ---
Entered by ELIU MITCHELL SCRIBE 10/03/19 0731 Acting as scribe for:ZACHARY CHURCH MD ED Psych Disorder / Suicide - General Stated Complaint: ALTERED MENTAL STATUS/POSSIBLE OVERDOSE Time Seen by Provider: 10/03/19 07:08 Information source: Patient Cannot obtain history due to: Altered mental status Notes: This 19 year old female patient presents to the emergency department today with complaints of being found at a gas station off of [address] acutely psychotic. Patient was allegedly smashing wine bottles and beer cans throughout the gas station so law enforcement was called. EMS reports that the patient began spitting at law enforcement so she was given ketamine prior to arrival here. Patient initially engages in conversation but quickly covers her face with her hands and buries her head into the bed. TRAVEL OUTSIDE OF THE [place] IN LAST 30 DAYS: No - Related Data Allergies/Adverse Reactions: No Known Allergies Allergy (Verified 04/10/19 23:04) Past Medical History - General Information source: Patient Cannot obtain history due to: Altered mental status - Social History Smoking Status: Unknown if Ever Smoked Frequency of alcohol use: None Drug Abuse: None Lives with: Family Family History: Reviewed & Not Pertinent - Medical History Medical History: Negative Surgical Hx: Negative - Immunizations Immunizations up to date: Yes Hx Diphtheria, Pertussis, Tetanus Vaccination: Yes Review of Systems - Review of Systems -: Yes ROS unobtainable due to patient's medical condition - EMS administered ketamine to get patient under control. Acutely psychotic. Physical Exam - Vital signs Vitals: Pulse Ox 99 10/03/19 07:08 - Notes Notes: Physical Exam: General: Initially engages in conversation but quickly puts her hands over her face and buries her head into the bed. HEENT: Normocephalic. Atraumatic. PERRL. Extraocular movements intact. Orophary nx clear. Nystagmus. Neck: Supple. Non-tender. Respiratory: No respiratory distress. Clear and equal breath sounds bilaterally. Cardiovascular: Regular rate and rhythm. Abdominal: Normal Inspection. Non-tender. No distension. Normal Bowel Sounds. Back: No gross abnormalities. Extremities: Moves all four extremities. Upper extremities: Normal inspection. Normal ROM. Lower extremities: Normal inspection. No edema. Normal ROM. Psychological: Screaming God over and over, yelling that she wants a bible, screaming about coronavirus. Acutely psychotic, manic. Skin: Warm. Dry. Normal color. Course - Re-evaluation Re-evalutation: 10/03/19 07:36 Shortly after the patient arrived to the emergency room, the ketamine wore off and she became violent and had to be restrained. She was screaming loudly. She was repeatedly screaming "God, God,God. [place] virus, God I'm not crazy, and many nonsensical phrases. She was given ketamine 20 mg IV to see if that would calm her back down. - Vital Signs Vital signs: Temp Pulse Resp BP Pulse Ox 98.3 F 101 H 18 129/59 H 98 10/03/19 12:01 10/03/19 07:46 10/03/19 12:01 10/03/19 12:00 10/03/19 11:59 - Laboratory Result Diagrams: 10/03/19 08:00 10/03/19 08:00 Laboratory results interpreted by me: 10/03/19 10/03/19 10/03/19 08:00 08:00 10:45 RDW 14.7 H Potassium 3.3 L Carbon Dioxide 16 L Total Protein 8.9 H Urine Protein 100 H Urine Glucose (UA) 50 H Urine Ketones 80 H Urine Blood LARGE H Ur Leukocyte Esterase TRACE H Urine Ascorbic Acid 20 H Salicylates < 1.0 L Acetaminophen < 10 L - EKG Interpretation by Me EKG shows normal: Sinus rhythm, Reva, Intervals, QRS Complexes, ST-T Waves Rate: Normal - 93 Rhythm: NSR Discharge - Discharge Clinical Impression: Manic psychosis Condition: Stable Disposition: PSYCH HOSP/UNIT I personally performed the services described in the documentation, reviewed and edited the documentation which was dictated to the scribe in my presence, and it accurately records my words and actions.
[2019-10-03 08:28] LABS: ABSOLUTE LYMPHOCYTES (AUTO) 1.5 10^3/uL (0.5-4.7); ABSOLUTE MONOCYTES (AUTO) 0.6 10^3/uL (0.1-1.4); ABSOLUTE NEUT (AUTO) 6.4 10^3/uL (1.7-8.2); BASOPHILS % (AUTO) 0.4 % (0-2); EOSINOPHILS % (AUTO) 0.2 % (0-6); HEMATOCRIT 37.9 % (36.0-47.0); HEMOGLOBIN 12.9 g/dL (12.0-15.5); LYMPHOCYTES % (AUTO) 18.1 % (13-45); MEAN CORPUSCULAR HEMOGLOBIN 29.3 pg (27.0-33.4); MEAN CORPUSCULAR HGB CONC 34.1 g/dL (32.0-36.0); MEAN CORPUSCULAR VOLUME 86 fl (80-97); MONOCYTES % (AUTO) 6.6 % (3-13); PLATELET COUNT 312 10^3/uL (150-450); RED BLOOD COUNT 4.41 10^6/uL (3.72-5.28); RED CELL DISTRIBUTION WIDTH 14.7 % (11.5-14.0); SEGMENTED NEUTROPHILS % (AUTO) 74.7 % (42-78); TOTAL CELLS COUNTED % (AUTO) 100 %; WHITE BLOOD COUNT 8.5 10^3/uL (4.0-10.5)
[2019-10-03 08:50] LABS: ALBUMIN 4.8 g/dL (3.5-5.0); ALKALINE PHOSPHATASE 77 U/L (38-126); ANION GAP 18 (5-19); ASPARTATE AMINO TRANSFERASE 33 U/L (14-36); BILIRUBIN,TOTAL 1.1 mg/dL (0.2-1.3); BLOOD UREA NITROGEN 14 mg/dL (7-20); CALCIUM 9.9 mg/dL (8.4-10.2); CARBON DIOXIDE 16 mmol/L (22-30); CHLORIDE 104 mmol/L (98-107); GLUCOSE 109 mg/dL (75-110); POTASSIUM 3.3 mmol/L (3.6-5.0); TOTAL PROTEIN 8.9 g/dL (6.3-8.2)
[2019-10-03 08:57] LABS: ACETAMINOPHEN < 10 ug/mL (10-30); ALCOHOL < 10 mg/dL (NONE DETECTED)
[2019-10-03 08:58] LABS: SALICYLATE < 1.0 mg/dL (2.0-20.0)
[2019-10-03] MEDS ORDERED: DEXTROSE 5%-LACTATED RINGERS 1,000 ML IV ONE (09:15)
[2019-10-03 11:04] LABS: APPEARANCE,URINE CLEAR; BILIRUBIN,URINE NEGATIVE (NEGATIVE); COLOR,URINE YELLOW; GLUCOSE, URINE 50 mg/dL (NEGATIVE); KETONES,URINE 80 mg/dL (NEGATIVE); LEUKOCYTE ESTERASE,URINE TRACE (NEGATIVE); NITRITE,URINE NEGATIVE (NEGATIVE); PROTEIN,URINE 100 mg/dL (NEGATIVE); URINE SPECIFIC GRAVITY 1.014; UROBILINOGEN,URINE NEGATIVE mg/dL (<2.0)
[2019-10-03 11:19] LABS: URINE AMPHETAMINES SCREEN NEGATIVE; URINE BARBITURATES SCREEN NEGATIVE; URINE BENZODIAZEPINES SCREEN NEGATIVE; URINE COCAINE SCREEN NEGATIVE; URINE MARIJUANA (THC) SCREEN NEGATIVE; URINE METHADONE SCREEN NEGATIVE; URINE PHENCYCLIDINE SCREEN NEGATIVE
--- NOTE | 2019-10-03 17:41 | EKG REPORT ---
SEVERITY:- NORMAL ECG - SINUS RHYTHM : Confirmed by: Kyle Crowder MD 03-Oct-2019 17:41:13
[2019-10-03] MEDS ORDERED: OLANZAPINE INJ/PF 10 MG SDV IM ONE (19:31)
[2019-10-03 20:53] VITALS: BP 120/71
== END 2019-10-03 21:10 | disposition home or self-care (01) ==
LOC: ER 07:00
DX: F30.2 Manic episode, severe with psychotic symptoms (principal); Z78.1 Physical restraint status
CPT/HCPCS: 93005; 99285; 96372; 96360; 36415; 80307 ×4; 84703; 85025; 80053; 81001; 93010; J0515; J1630; J3490; J7121

== ENCOUNTER 2019-10-08 11:59 | Emergency (ER) | payer OTHER ==
--- NOTE | 2019-10-08 12:26 | ER Document Report ---
ED Medical Screen (RME) - General Chief Complaint: Psych Problem Stated Complaint: PSYCH EVAL/HEARING VOICES Time Seen by Provider: 10/08/19 12:22 Mode of Arrival: Ambulatory Information source: Patient Notes: 19-year-old female presented to ED for complaint of hearing voices that are telling her to kill her mother. She states she was just in here on Wednesday for similar symptoms and was strapped down and she does not want to be strapped down. She states that those voices were telling her to kill the staff and her mother. She states she had drank a lot of caffeine but they were she was told not to drink any caffeine and has not had any caffeine since her last visit. Patient is alert and oriented talking to the voices that are talking to her telling them to stop telling her to kill people. She does smoke 5 black in miles and eat CBD Gummies. I have greeted and performed a rapid initial assessment of this patient. A comprehensive ED assessment and evaluation of the patient, analysis of test results and completion of medical decision making process will be conducted by an additional ED providers. TRAVEL OUTSIDE OF THE [place] IN LAST 30 DAYS: No - Related Data Allergies/Adverse Reactions: No Known Allergies Allergy (Verified 04/10/19 23:04) Past Medical History - Social History Drug Abuse: Other Renal/ Medical History: Denies: Hx Peritoneal Dialysis - Immunizations Immunizations up to date: Yes Hx Diphtheria, Pertussis, Tetanus Vaccination: Yes Physical Exam - Vital signs Vitals: Temp Pulse Resp BP Pulse Ox 98.7 F 103 H 22 H 97/64 L 99 10/08/19 12:10 10/08/19 12:10 10/08/19 12:10 10/08/19 12:10 10/08/19 12:10 Course - Vital Signs Vital signs: Temp Pulse Resp BP Pulse Ox 98.7 F 103 H 22 H 97/64 L 99 10/08/19 12:10 10/08/19 12:10 10/08/19 12:10 10/08/19 12:10 10/08/19 12:10
[2019-10-08] MEDS ORDERED: CHLORPROMAZINE HCL INJ 25 MG/1 ML AMPULE IM ONE (12:48)
--- NOTE | 2019-10-08 14:05 | EKG REPORT ---
SEVERITY:- NORMAL ECG - SINUS RHYTHM : Confirmed by: Kyle Crowder MD 08-Oct-2019 14:04:40
[2019-10-08 14:25] LABS: ALKALINE PHOSPHATASE 51 U/L (38-126); ANION GAP 8 (5-19); ASPARTATE AMINO TRANSFERASE 24 U/L (14-36); BILIRUBIN,TOTAL 0.6 mg/dL (0.2-1.3); BLOOD UREA NITROGEN 9 mg/dL (7-20); CALCIUM 9.4 mg/dL (8.4-10.2); CARBON DIOXIDE 23 mmol/L (22-30); CHLORIDE 108 mmol/L (98-107); GLUCOSE 89 mg/dL (75-110); POTASSIUM 3.9 mmol/L (3.6-5.0); TOTAL PROTEIN 7.3 g/dL (6.3-8.2)
[2019-10-08 14:26] LABS: ACETAMINOPHEN < 10 ug/mL (10-30); ALCOHOL < 10 mg/dL (NONE DETECTED); SALICYLATE < 1.0 mg/dL (2.0-20.0)
[2019-10-08 14:49] LABS: ABSOLUTE EOSINOPHILS # (AUTO) 0.1 10^3/uL (0.0-0.6); ABSOLUTE LYMPHOCYTES (AUTO) 2.2 10^3/uL (0.5-4.7); ABSOLUTE MONOCYTES (AUTO) 0.3 10^3/uL (0.1-1.4); ABSOLUTE NEUT (AUTO) 1.6 10^3/uL (1.7-8.2); BASOPHILS % (AUTO) 0.9 % (0-2); EOSINOPHILS % (AUTO) 2.8 % (0-6); HEMATOCRIT 36.1 % (36.0-47.0); HEMOGLOBIN 12.2 g/dL (12.0-15.5); LYMPHOCYTES % (AUTO) 51.9 % (13-45); MEAN CORPUSCULAR HGB CONC 33.7 g/dL (32.0-36.0); MEAN CORPUSCULAR VOLUME 86 fl (80-97); MONOCYTES % (AUTO) 6.8 % (3-13); PLATELET COUNT 267 10^3/uL (150-450); RED CELL DISTRIBUTION WIDTH 14.4 % (11.5-14.0); SEGMENTED NEUTROPHILS % (AUTO) 37.6 % (42-78); TOTAL CELLS COUNTED % (AUTO) 100 %; WHITE BLOOD COUNT 4.2 10^3/uL (4.0-10.5)
--- NOTE | 2019-10-08 14:49 | PSYCHOLOGICAL NOTE ---
Psych Note - Psych Note Date seen by psych provider: 10/08/19 Time seen by psych provider: 12:30 Psych Note: Reason for Consult: Command Auditory Hallucinations Pt presents to ED for a psych evaluation. The pt reports auditory hallucinations that started on Wednesday. The voices are tell her to kill her mother. The pt reports HI and SI. No plan. The pt has repetitive speech and repetitively states "stop talking. I don't want to hear you. Shut up!". Chart review: Patient was just seen for Caffeine intoxication after drinking significant amounts of BAM energy drink (7 cans) in an hour. She presented psychotic with both auditory and visual hallucinations. She was advised to refrain from drinking BAM or any other energy drink. Today patient reports she has been hearing voices that is telling her to kill people. She states she listens to music all day and just thinks of ways to kill people. He originally denies drinking any caffeine to clinician then states she is unsure (she reported to nursing staff she only has drank water and soda). Patient disclosed she was hearing voices upon previous discharge but she lied because she wanted to go home. Clinician explained procedure to patient and patient stated she did not want to stay. It was explained that there is concern the patient is reporting auditory hallucinations to kill people and IVC paperwork will need to be put into place so the patient can receive appropriate treatment. Patient stated "no, I promise I wont kill anyone, I wont....I lied, I lied, I lied." Clinician explained there is concern that the patient just stated she lied about hallucinations previously to be discharge and she is again saying the same thing. Patient was able to be redirected but eventually needed medications to assist in calming her. Patient alert and orientated to person, place, time and circumstance. Mood is anxious with congruent affect as evidenced by psychopmotor agitation ie patient is pacing and wringing her hands, picking up chairs and banging them down and knocking on the hutson with her hands. Patient discloses command auditory hallucinations to kill people. Patient is observed talking to herself by [facility] staff. Patient is noted to have poverty of speech that is repetitive. Patient does attempt to engage appropriately and answer questions appropriately. Eye contact is poor. Attention and concentration is poor. Impression/Plan: Patient is recommended for IVC. IVC paperwork has been completed, faxed to the evaluation specialist and placed into the patient's chart. Patient was previously seen for caffeine intoxication psychosis 5 days previously on 10/03/2019. During that visit the patient reported drinking 7 cans of BAM energy drink in an hour and family reported the patient's car was completely filled with empty energy drink cans. Patient's current presentation is very similar to that previous presentation. While patient denies drinking any caffeine, this is highly questionable as patient then disclosed to nursing staff she drank soda. Patient is currently demonstrating behavior of responding to internal stimuli. She reports command auditory hallucinations, she was observed talking to herself, is noted to have poverty of speech that is repetitive, psychomotor a gitation such as pacing wringing hands, picking up chairs and banging them down, and knocking on the hutson with her hands.
[2019-10-08 16:39] LABS: FREE T3 3.38 pg/mL (2.77-5.27); FREE T4 (FREE THYROXINE) 1.17 ng/dL (0.78-2.19)
--- NOTE | 2019-10-08 18:24 | ER Document Report ---
Entered by INDIA THORNE SCRIBE 10/08/19 4630 Acting as scribe for:YEE MURILLO MD ED Psych Disorder / Suicide - General Chief Complaint: Psych Problem Stated Complaint: PSYCH EVAL/HEARING VOICES Time Seen by Provider: 10/08/19 12:22 Mode of Arrival: Ambulatory Information source: Patient Notes: This 19-year-old homeless female presents to the emergency department with homicidal ideations that began "awhile ago". Patient explains that she is having voices that are telling her to kill people. Patient states that the voices are telling her to kill her mom, dad, brother and sister. Patient states that she had a plan to kill her sister by adding [employer] in her Rai-aid. Patient said that her sister called the police on her and she no longer lives with her sister because she "doesn't like her". Patient states that sister is not in the area at this time because "she went to [place]". Patient said that she is seeing visual hallucinations of stick figures and dark figures. Patient said that she is unable to sleep due to her visual hallucinations and she drinks Bang energy drink to "calm her nerves". Patient said that she has not had any energy drinks since her visit four days ago. Patient also mentions that she takes CBD gummies, percocets, smokes marijuana and black and milds to "calm her nerves". Patient states that she was "strapped down" last visit "for no reason". Patient said that her voices are telling her to kill everyone who restrained her. Patient states that her "voices are quiet right now". TRAVEL OUTSIDE OF THE [place] IN LAST 30 DAYS: No - Related Data Allergies/Adverse Reactions: No Known Allergies Allergy (Verified 04/10/19 23:04) Past Medical History - General Information source: Patient - Social History Smoking Status: Current Every Day Smoker Cigarette use (# per day): Yes Chew tobacco use (# tins/day): No Frequency of alcohol use: None Drug Abuse: None Lives with: Homeless Family History: Reviewed & Not Pertinent Patient has suicidal ideation: Yes Patient has homicidal ideation: Yes Psychiatric Medical History: Reports: Hx Bipolar Disorder Surgical Hx: Negative - Immunizations Immunizations up to date: Yes Hx Diphtheria, Pertussis, Tetanus Vaccination: Yes Review of Systems - Review of Systems Constitutional: No symptoms reported EENT: No symptoms reported Cardiovascular: No symptoms reported Respiratory: No symptoms reported Gastrointestinal: No symptoms reported Genitourinary: No symptoms reported Female Genitourinary: See HPI. denies: Musculoskeletal: No symptoms reported Skin: No symptoms reported Hematologic/Lymphatic: No symptoms reported Neurological/Psychological: See HPI, Hallucinations, Homicidal ideation, Suicidal ideation -: Yes All other systems reviewed and negative Physical Exam - Vital signs Vitals: Temp Pulse Resp BP Pulse Ox 98.7 F 103 H 22 H 97/64 L 99 10/08/19 12:10 10/08/19 12:10 10/08/19 12:10 10/08/19 12:10 10/08/19 12:10 - Notes Notes: Physical Exam: General: Alert, appears well. HEENT: Normocephalic. Atraumatic. PERRL. Extraocular movements intact. Oropharynx clear. Neck: Supple. Non-tender. Respiratory: No respiratory distress. Clear and equal breath sounds bilaterally. Cardiovascular: Regular rate and rhythm. Abdominal: Normal Inspection. Non-tender. No distension. Normal Bowel Sounds. Back: No gross abnormalities. Extremities: Moves all four extremities. Upper extremities: Normal inspection. Normal ROM. Lower extremities: Normal inspection. No edema. Normal ROM. Neurological: Normal cognition. AAOx4. Normal speech. Psychological: Normal affect. Normal Mood. Skin: Warm. Dry. Normal color. Course - Re-evaluation Re-evalutation: 10/08/19 18:17 Patient resting comfortably not showing any signs of distress. 10/08/19 18:23 Patient is medically cleared and at this point is stable to be disposition to either inpatient or outpatient mental health facility for further evaluation and treatment. - Vital Signs Vital signs: Temp Pulse Resp BP Pulse Ox 98.3 F 60 16 98/64 L 100 10/08/19 17:36 10/08/19 17:36 10/08/19 17:36 10/08/19 17:36 10/08/19 17:36 10/08/19 18:17 Vital signs stable no acute process. - Laboratory Result Diagrams: 10/08/19 13:52 10/08/19 13:52 Laboratory results interpreted by me: 10/08/19 10/08/19 10/08/19 13:52 13:52 13:52 RDW 14.4 H Lymph % (Auto) 51.9 H Absolute Neuts (auto) 1.6 L Seg Neutrophils % 37.6 L Chloride 108 H TSH 0.08 L Salicylates < 1.0 L Acetaminophen < 10 L Laboratories disclose a TSH that was 0.08 which is a low number however patient's T4 and T3 are all in the normal range. Patient does not show any clinical signs of hyperthyroidism at this time her heart rate is 60 at rest not showing any tachycardia. - EKG Interpretation by Me Additional EKG results interpreted by me: 10/08/19 18:21 Twelve-lead EKG shows normal sinus rhythm no acute changes. Discharge - Discharge Clinical Impression: Bipolar disease, chronic, Manic psychosis, Homicidal ideation Condition: Good Disposition: PSYCH HOSP/UNIT I personally performed the services described in the documentation, reviewed and edited the documentation which was dictated to the scribe in my presence, and it accurately records my words and actions.
[2019-10-08 20:38] VITALS: BP 94/53
== END 2019-10-08 20:50 ==
LOC: ER 11:59
DX: F30.2 Manic episode, severe with psychotic symptoms (principal); R45.850 Homicidal ideations; R45.851 Suicidal ideations; F17.210 Nicotine dependence, cigarettes, uncomplicated
CPT/HCPCS: 93005; 99285; 96372; 36415; 84439; 80307 ×3; 84443; 84703; 85025; 80053; 84481; 93010; J3230

== ENCOUNTER 2019-11-01 08:59 | Emergency (ER) | payer OTHER ==
[2019-11-01] MEDS ORDERED: IBUPROFEN 800 MG TABLET PO ONE (09:14)
--- NOTE | 2019-11-01 09:14 | ER Document Report ---
ED Medical Screen (RME) - General Chief Complaint: Headache Stated Complaint: HEADACHE Time Seen by Provider: 11/01/19 09:05 Mode of Arrival: Ambulatory Information source: Patient Notes: Patient presents stating that she had recently been treated for hearing voices. Patient states she had a prescription she was supposed to cloth picker but there was an issue at the pharmacy. Patient states she then called the [facility] facility about her prescription and whenever she told him that she was still hearing voices telling her to kill her sister and they advised her to come back to the [facility] facility and check in. Patient states she does not have time to check into a facility as she needs to work. Patient does complain of headache that she has had for over a week now. Patient denies any fever. Patient does complain of some dysuria symptoms. Patient denies any nausea vomiting or diarrhea. Patient initially told staff at the triage desk that she had been taking medications that were not working. Patient tells provider that she is unable to cloth picker the prescription. I have greeted and performed a rapid initial assessment of this patient. A comprehensive ED assessment and evaluation of the patient, analysis of test results and completion of the medical decision making process will be conducted by additional ED providers. TRAVEL OUTSIDE OF THE [place] IN LAST 30 DAYS: No - Related Data Allergies/Adverse Reactions: No Known Allergies Allergy (Verified 11/01/19 09:09) Past Medical History Renal/ Medical History: Denies: Hx Peritoneal Dialysis Psychiatric Medical History: Reports: Hx Bipolar Disorder - Immunizations Immunizations up to date: Yes Hx Diphtheria, Pertussis, Tetanus Vaccination: Yes Physical Exam - Vital signs Vitals: Temp Pulse Resp BP Pulse Ox 98.5 F 96 16 108/64 100 11/01/19 09:03 11/01/19 09:03 11/01/19 09:03 11/01/19 09:03 11/01/19 09:03 - Psychological Associated symptoms: Auditory hallucinations, Tangential speech Course - Vital Signs Vital signs: Temp Pulse Resp BP Pulse Ox 98.5 F 96 16 108/64 100 11/01/19 09:03 11/01/19 09:03 11/01/19 09:03 11/01/19 09:03 11/01/19 09:03
[2019-11-01 09:52] LABS: ABSOLUTE EOSINOPHILS # (AUTO) 0.2 10^3/uL (0.0-0.6); ABSOLUTE LYMPHOCYTES (AUTO) 2.4 10^3/uL (0.5-4.7); ABSOLUTE NEUT (AUTO) 1.8 10^3/uL (1.7-8.2); TOTAL CELLS COUNTED % (AUTO) 100 %; WHITE BLOOD COUNT 4.8 10^3/uL (4.0-10.5)
[2019-11-01 09:57] LABS: ABSOLUTE MONOCYTES (AUTO) 0.3 10^3/uL (0.1-1.4); BASOPHILS % (AUTO) 0.7 % (0-2); HEMATOCRIT 36.3 % (36.0-47.0); HEMOGLOBIN 12.5 g/dL (12.0-15.5); LYMPHOCYTES % (AUTO) 50.2 % (13-45); MEAN CORPUSCULAR HEMOGLOBIN 29.3 pg (27.0-33.4); MEAN CORPUSCULAR HGB CONC 34.4 g/dL (32.0-36.0); MEAN CORPUSCULAR VOLUME 85 fl (80-97); MONOCYTES % (AUTO) 6.9 % (3-13); PLATELET COUNT 336 10^3/uL (150-450); RED BLOOD COUNT 4.26 10^6/uL (3.72-5.28); RED CELL DISTRIBUTION WIDTH 14.3 % (11.5-14.0); SEGMENTED NEUTROPHILS % (AUTO) 37.2 % (42-78)
[2019-11-01 10:28] LABS: ALBUMIN 4.5 g/dL (3.5-5.0); ALKALINE PHOSPHATASE 56 U/L (38-126); ANION GAP 10 (5-19); ASPARTATE AMINO TRANSFERASE 26 U/L (14-36); BLOOD UREA NITROGEN 8 mg/dL (7-20); CALCIUM 9.8 mg/dL (8.4-10.2); CARBON DIOXIDE 26 mmol/L (22-30); CHLORIDE 103 mmol/L (98-107); GLUCOSE 95 mg/dL (75-110); POTASSIUM 4.1 mmol/L (3.6-5.0); TOTAL PROTEIN 8.2 g/dL (6.3-8.2)
--- NOTE | 2019-11-01 10:32 | ER Document Report ---
ED Psych Disorder / Suicide - General Chief Complaint: Psych Problem Stated Complaint: HEADACHE Time Seen by Provider: 11/01/19 09:05 Mode of Arrival: Ambulatory Notes: CHIEF COMPLAINT: Thoughts of harming others HPI: Difficult to obtain history from the patient as she is somewhat disorganized in her speech. A 19-year-old female with history of bipolar presenting for thoughts of killing her sister. Patient states that she was recently inpatient at [facility] and they did prescribe her a medication to help with her bipolar but she is not taking that medication currently. She gives different stories about why she is not taking the medication but does admit to actively having thoughts of harming others. She denies thoughts of harming herself. 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 ROS: See HPI - all other systems were reviewed and are otherwise negative Constitutional: no fever Eyes: no drainage, no blurred vision ENT: no runny nose, no sore throat Cardiovascular: no chest pain Resp: no SOB, no cough GI: no vomiting, no diarrhea, no abdominal pain : no dysuria Integumentary: no rash Allergy: no hives Musculoskeletal: no extremity pain or swelling Neurological: no numbness/tingling, no weakness MEDICATIONS: I agree with the patient medications as charted by the RN. ALLERGIES: I agree with the allergies as charted by the RN. PAST MEDICAL HISTORY/PAST SURGICAL HISTORY: Reviewed and agree as charted by RN. SOCIAL HISTORY: Reviewed and agree as charted by RN. FAMILY HISTORY: No significant familial comorbid conditions directly related to patient complaint EXAM: Reviewed vital signs as charted by RN. CONSTITUTIONAL: Alert and oriented and responds appropriately to questions although speech is somewhat disorganized in thinking pattern is somewhat disorganized. Well-appearing; well-nourished HEAD: Normocephalic; atraumatic EYES: PERRL; Conjunctivae clear, sclerae non-icteric ENT: normal nose; no rhinorrhea; moist mucous membranes; pharynx without lesions noted, no uvula edema or deviation, no tonsillar hypertrophy, phonation normal NECK: Supple without meningismus; non-tender; no cervical lymphadenopathy, no masses CARD: RRR; no murmurs, no clicks, no rubs, no gallops; symmetric distal pulses RESP: Normal chest excursion without splinting or tachypnea; breath sounds clear and equal bilaterally; no wheezes, no rhonchi, no rales, pulse oximetry 99% on room air not hypoxic ABD/GI: Normal bowel sounds; non-distended; soft, non-tender, no rebound, no guarding; no palpable organomegaly or masses. BACK: The back appears normal and is non-tender to palpation, there is no CVA tenderness EXT: Normal ROM in all joints; non-tender to palpation; no cyanosis, no effusions, no edema SKIN: Normal color for age and race; warm; dry; good turgor; no acute lesions noted NEURO: Moves all extremities equally; Motor and sensory function intact PSYCH: The patient's mood and manner are hyperactive and slightly manic. Grooming and personal hygiene are appropriate. Patient shows poor insight into her disease process. Poor insight into why she needs to be on medications. Noncompliance with obtaining and filling her medications. She reports actively that she still does have thoughts of harming others and does not see how this is against societal norms as "they deserve it". MDM: 19-year-old female with bipolar with thoughts of harming others. Spoke with Jocelyn from the psychiatric team, I will place the patient on 24-hour hold as she is actively thinking of harming others at this time pending psychiatric clearance and evaluation TRAVEL OUTSIDE OF THE [place] IN LAST 30 DAYS: No - Related Data Allergies/Adverse Reactions: No Known Allergies Allergy (Verified 11/02/19 08:02) Past Medical History - General Information source: Patient - Social History Smoking Status: Never Smoker Frequency of alcohol use: None Drug Abuse: None Family History: Reviewed & Not Pertinent Patient has homicidal ideation: Yes - previous "voices telling me to harm my sister" Renal/ Medical History: Denies: Hx Peritoneal Dialysis Psychiatric Medical History: Reports: Hx Bipolar Disorder - Immunizations Immunizations up to date: Yes Hx Diphtheria, Pertussis, Tetanus Vaccination: Yes Physical Exam - Vital signs Vitals: Temp 98.5 F 11/01/19 09:00 Course - Re-evaluation Re-evalutation: 11/01/19 10:35 Patient is medically cleared for psychiatric services to evaluate 11/01/19 14:19 Patient has been seen by the psychiatric team they have asked me to add Zyprexa and Cogentin to the patient's medical regimen at this time. Patient came out of her room to question when she could leave. I took the patient back to her room and explained to the patient that I have concerns about some of the statements that she made regarding harming others, she continues to show poor insight into her disease process. She states that she refuses to take any medications for her bipolar condition. She states that they tried to force her to take these at [facility] she will continue to refuse to take medication to treat her condition. I discussed this at length with her and she is aware that she cannot leave she is under 24-hour petition at this point that I have placed on the patient given her poor insight and earlier statements about harming others 11/01/19 14:35 Patient again tried to leave without authorization. She was brought back by security continues to scream and yell at staff including security and nursing continues to not follow instruction. Will give Haldol and Ativan at this time as she is now a threat to staff and self 11/01/19 16:[address] Lucia MD attending, will follow - Vital Signs Vital signs: Temp Pulse Resp BP Pulse Ox 98.3 F 18 L 20 111/66 100 11/02/19 06:38 11/02/19 06:38 11/02/19 06:38 11/02/19 06:38 11/02/19 06:38 - Laboratory Result Diagrams: 11/01/19 09:40 11/01/19 09:40 Laboratory results interpreted by me: 11/01/19 11/01/19 11/01/19 09:40 09:40 09:56 RDW 14.3 H Lymph % (Auto) 50.2 H Seg Neutrophils % 37.2 L Urine Protein 100 H Ur Leukocyte Esterase SMALL H Salicylates < 1.0 L Acetaminophen < 10 L Discharge - Discharge Clinical Impression: Homicidal ideation UTI (urinary tract infection) Qualifiers: Urinary tract infection type: site unspecified Hematuria presence: without hematuria Qualified Code(s): N39.0 - Urinary tract infection, site not specified Condition: Stable Disposition: PSYCH HOSP/UNIT
[2019-11-01 10:34] LABS: ACETAMINOPHEN < 10 ug/mL (10-30); ALCOHOL < 10 mg/dL (NONE DETECTED); SALICYLATE < 1.0 mg/dL (2.0-20.0)
[2019-11-01 11:13] LABS: APPEARANCE,URINE SLIGHTLY-CLOUDY; BILIRUBIN,URINE NEGATIVE (NEGATIVE); GLUCOSE, URINE NEGATIVE (NEGATIVE); KETONES,URINE NEGATIVE (NEGATIVE); LEUKOCYTE ESTERASE,URINE SMALL (NEGATIVE); NITRITE,URINE NEGATIVE (NEGATIVE); PROTEIN,URINE 100 mg/dL (NEGATIVE); URINE SPECIFIC GRAVITY 1.023; UROBILINOGEN,URINE NEGATIVE mg/dL (<2.0)
[2019-11-01 11:14] LABS: COLOR,URINE YELLOW
[2019-11-01 11:31] LABS: URINE AMPHETAMINES SCREEN NEGATIVE; URINE BARBITURATES SCREEN NEGATIVE; URINE BENZODIAZEPINES SCREEN NEGATIVE; URINE COCAINE SCREEN NEGATIVE; URINE MARIJUANA (THC) SCREEN NEGATIVE; URINE METHADONE SCREEN NEGATIVE; URINE PHENCYCLIDINE SCREEN NEGATIVE
[2019-11-01] MEDS ORDERED: CEPHALEXIN 500 MG CAPSULE PO ONE (11:35)
[2019-11-01] MEDS ORDERED: PHENAZOPYRIDINE HCL 200 MG TABLET PO ONE (11:36)
[2019-11-01] MEDS ORDERED: LORAZEPAM INJ 2 MG/1 ML VIAL IM ONE (14:34)
[2019-11-01] MEDS ORDERED: HALOPERIDOL LACTATE INJ 5 MG/1 ML VIAL IM ONE (14:35)
[2019-11-01] MEDS: BENZTROPINE MESYLATE INJ 2 MG/2 ML AMPULE IM SCH (15:02)
--- NOTE | 2019-11-01 18:16 | PSYCHOLOGICAL NOTE ---
Psych Note - Psych Note Date seen by psych provider: 11/01/19 Time seen by psych provider: 12:06 - [id number]. Psych Note: Presenting Problem: Patient is a 19 year old female who presented to the [facility] ED this morning via POV for medical concerns of UTI. She presented manic with thoughts of killing her sister, had disclosed recent discharge from [facility] with diagnosis of Bipolar and not being able to get medications filled due to financial reasons. She was subsequently put on a 24 Hour Petition for Evaluation. Patient identified "I came tot he ED for a UTI that's it." She commented "they asked me if I wanted to harm someone and I said no." When asked if she had any thoughts to harm/hurt/kill anyone she said "no." When asked if she had thoughts to harm/hurt/kill self she said "of course not." She reported "I am constantly on the move and active, when I am stuck in places that I cannot do things that is when there is an issue." She stated she was ready to go home and was supposed to be at Work at [employer] in [facility]. 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 Patient has been seen in the [facility] ED for behavioral health 10/08/2019 and 10/02/2019 for caffeine intoxication and manic like symptoms. she confirmed she had been at [facility] for 3 days and described it "as the worst 3 days of my life I couldn't do what I wanted," was diagnosed Bipolar and put on medication. She stated she did get it filled but has not taken it. She was unable to provide any medication names. She said she has a follow up appointment, did not know the name of the agency and commented "I have no time to go, I am a model and actress." When asked if she thought they were right about Bipolar diagnosis she said "yes." When asked about family history of Bipolar she commented "yes but they don't admit it." She stated she has been staying away form energy drinks since they told her to. Patient then stated she is supposed to be on Dr. Anne's show November or December and he will be her provider. She stated she resides alone with her 1 year old daughter. She stated her Aunt has her daughter currently. Patient was alert and oriented to self, person, place, time and situation. Mood was euphoric with manic affect. She denied SI/HI but has told medical staff she had thoughts of killing her sister. Patient did not appear to be responding to internal stimuli as evidenced by fair eye contact and answering questions appropriately when addressed. Conversational speech was pressured. Intellectual abilities are estimated to be average. Thought processes were perseverative about leaving and going to work. She minimized her symptoms. Insight, judgment and impulse control were poor as evidenced by lack of insight into her presentation/Bipolar symptoms, needing to take medications as prescribed in order to manage them and saying she doesn't have time for follow up mental health outpatient services. After an hour or so patient presented with labile mood (irritable, euthymic). She would not follow directions (such as to leave her blanket in her room when going to the rest room, or staying in her room/she kept coming out into the hallway). She required lots of redirection from medical and security staff. At one point she was sitting in her doorway yelling/screaming then crying. Interventions: Used open ended questioning to obtain information regarding current crisis situation and past, as well as to get patient to elaborate. Used coming alongside when patient talked about being active and working in also taking care of herself and her mental health via taking medications as prescribed and going to appointments monthly in order to maintain her medications. Challenged and confronted patient about local linkage to IFS and supports since she had been linked by [facility]. Collateral (obtained by [facility] ED Behavioral Health Fe[facility] Duster Winder which is copied and pasted from her document): Spoke with Muriel at [place] who reported patient's discharge prescription was Haldol 5MG QHS. Muriel stated patient received Haldol 5MG BID while in their facility. Patient's plan at aftercare was to follow up with IFS. She stated patient was discharged two weeks ago. Diagnosis: Kaitlynn Mood lability Bipolar per patient per recent hospitalization at [facility] Medication recommendations: Add Zyprexa 5MG IM twice a day for mood stabilization/psychosis/impulse control Add Cogentin 1MG IM daily to curb tremor side effects often associated with antipsychotic medications Impression/Plan: Recommendation for Full IVC and placement. Patient presented manic (pressured speech, mood lability which started out euphoric then euthymic, irritable)), has been seen in this ED for similar behavioral health reasons twice (10/08/2019 and 10/03/2019, she was excessively using energy drinks during those visits so attributed much of the kaitlynn to them) and had recent hospitalization at [facility] where she was diagnosed with Bipolar Disorder/started on medication/linked to IFS for follow up and has been noncompliant (not taking medication, has not done any follow up). Consulted with Dr. Cervantes regarding the management and care of patient. ED Physician in agreement with recommendations.
[2019-11-01] MEDS: CEPHALEXIN 500 MG CAPSULE PO SCH (18:35)
[2019-11-01] MEDS: OLANZAPINE INJ/PF 10 MG SDV IM SCH (18:36)
--- NOTE | 2019-11-01 20:48 | EKG REPORT ---
SEVERITY:- NORMAL ECG - SINUS RHYTHM : Confirmed by: Rc Staton 01-Nov-2019 20:47:24
[2019-11-02 06:39] VITALS: BP 111/66
[2019-11-02] MEDS: BENZTROPINE MESYLATE INJ 2 MG/2 ML AMPULE IM SCH (07:58)
[2019-11-02] MEDS ORDERED: OLANZAPINE 5 MG TABLET PO ONE (09:52)
[2019-11-02] MEDS: CEPHALEXIN 500 MG CAPSULE PO SCH (09:55)
[2019-11-02] MEDS: OLANZAPINE INJ/PF 10 MG SDV IM SCH (09:56)
--- NOTE | 2019-11-02 13:15 | ER Document Report ---
Doctor's Note Notes: 11/02/19 13:14 Pt assessed at 1015 am- Patient's vital signs and previous labs, diagnostic images reviewed. Reviewed mental health notes, nurse's notes and previous providers notes. VSS. Pt is in no distress at this time. Denies any SI or HI. pt was reluctant to speak to me. drinking without issues General: A&Ox3. Answers questions appropriately. Heart: RRR Lungs: CTAB Psych: Flat affect A/P: Continue monitoring and rec's per MH. Normal diet Consider placement to [place] today 11/02/19 13:15
== END 2019-11-02 10:44 ==
LOC: ER 08:59
DX: R45.850 Homicidal ideations (principal); F31.9 Bipolar disorder, unspecified; T50.906A Underdosing of unspecified drugs, medicaments and biological substances, initial encounter; Z91.14 Patient's other noncompliance with medication regimen; N39.0 Urinary tract infection, site not specified
CPT/HCPCS: 93005; 99285; 96372; 36415; 80307 ×4; 84703; 85025; 80053; 81001; 93010; J0515 ×2; J1630; J3490; J2060

== ENCOUNTER 2020-05-19 21:16 | Emergency (ER) | payer MEDICAID, OTHER ==
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
--- NOTE | 2020-05-19 22:12 | EKG REPORT ---
SEVERITY:- BORDERLINE ECG - SINUS TACHYCARDIA DIFFUSE NONSPECIFIC ST-T CHANGES : Confirmed by: Kyle Crowder MD 19-May-2020 22:11:44
[2020-05-19 22:15] LABS: ABSOLUTE EOSINOPHILS # (AUTO) 0.2 10^3/uL (0.0-0.6); ABSOLUTE LYMPHOCYTES (AUTO) 3.2 10^3/uL (0.5-4.7); ABSOLUTE MONOCYTES (AUTO) 0.6 10^3/uL (0.1-1.4); BASOPHILS % (AUTO) 0.6 % (0-2); EOSINOPHILS % (AUTO) 2.1 % (0-6); HEMATOCRIT 41.2 % (36.0-47.0); HEMOGLOBIN 13.8 g/dL (12.0-15.5); LYMPHOCYTES % (AUTO) 39.9 % (13-45); MEAN CORPUSCULAR HEMOGLOBIN 29.5 pg (27.0-33.4); MEAN CORPUSCULAR HGB CONC 33.5 g/dL (32.0-36.0); MEAN CORPUSCULAR VOLUME 88 fl (80-97); MONOCYTES % (AUTO) 7.3 % (3-13); PLATELET COUNT 290 10^3/uL (150-450); RED BLOOD COUNT 4.68 10^6/uL (3.72-5.28); RED CELL DISTRIBUTION WIDTH 14.8 % (11.5-14.0); SEGMENTED NEUTROPHILS % (AUTO) 50.1 % (42-78); TOTAL CELLS COUNTED % (AUTO) 100 %
[2020-05-19 22:25] LABS: ALBUMIN 4.7 g/dL (3.5-5.0); ALKALINE PHOSPHATASE 56 U/L (38-126); ANION GAP 10 (5-19); ASPARTATE AMINO TRANSFERASE 25 U/L (14-36); BILIRUBIN,TOTAL 0.8 mg/dL (0.2-1.3); BLOOD UREA NITROGEN 12 mg/dL (7-20); CALCIUM 10.5 mg/dL (8.4-10.2); CARBON DIOXIDE 27 mmol/L (22-30); CHLORIDE 103 mmol/L (98-107); GLUCOSE 96 mg/dL (75-110); POTASSIUM 4.3 mmol/L (3.6-5.0); TOTAL PROTEIN 8.6 g/dL (6.3-8.2)
[2020-05-19 22:26] LABS: ACETAMINOPHEN < 10 ug/mL (10-30); ALCOHOL < 10 mg/dL (NONE DETECTED); SALICYLATE < 1.0 mg/dL (2.0-20.0)
[2020-05-19 22:48] LABS: APPEARANCE,URINE SLIGHTLY-CLOUDY; BILIRUBIN,URINE NEGATIVE (NEGATIVE); COLOR,URINE YELLOW; GLUCOSE, URINE NEGATIVE (NEGATIVE); KETONES,URINE NEGATIVE (NEGATIVE); LEUKOCYTE ESTERASE,URINE LARGE (NEGATIVE); NITRITE,URINE NEGATIVE (NEGATIVE); PROTEIN,URINE 100 mg/dL (NEGATIVE); URINE SPECIFIC GRAVITY 1.025; UROBILINOGEN,URINE NEGATIVE mg/dL (<2.0)
[2020-05-19 23:00] LABS: URINE AMPHETAMINES SCREEN NEGATIVE; URINE BARBITURATES SCREEN NEGATIVE; URINE BENZODIAZEPINES SCREEN NEGATIVE; URINE COCAINE SCREEN NEGATIVE; URINE MARIJUANA (THC) SCREEN NEGATIVE; URINE METHADONE SCREEN NEGATIVE; URINE PHENCYCLIDINE SCREEN NEGATIVE
[2020-05-19] MEDS ORDERED: HALOPERIDOL 5 MG TABLET PO ONE (23:31)
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
[2020-05-19] MEDS: CEPHALEXIN 500 MG CAPSULE PO SCH (23:48)
[2020-05-20] MEDS: CEPHALEXIN 500 MG CAPSULE PO SCH ×2 (10:23→18:08)
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
[2020-05-20] MEDS ORDERED: HYDROXYZINE PAMOATE 50 MG CAPSULE PO ONE (20:34)
[2020-05-20] MEDS ORDERED: HALOPERIDOL LACTATE INJ 5 MG/1 ML VIAL IM ONE (21:28)
--- NOTE | 2020-05-20 23:59 | ER Document Report ---
Doctor's Note Notes: 05/20/20 22:25 The patient left her room and escape the department into the parking lot at approximately 9:20 PM. She was brought back in by security and restrained in her room by the nursing staff. She was yelling and screaming obscenities the entire time. Haldol 5 mg IM was ordered and I reevaluated the patient at the bedside. At this time, she is calm. She appears to have had a good response to Haldol and the order for restraints has now been removed. Restraints to be removed by nursing staff. The patient states she got angry and ran out of her room because she wanted Haldol and nobody had given her any this afternoon. She is currently calm and in no acute distress. She denies active suicidal homicidal ideation. She is not currently having any auditory or visual hallucinations.
[2020-05-21] MEDS: CEPHALEXIN 500 MG CAPSULE PO SCH ×2 (09:56→18:02)
--- NOTE | 2020-05-21 11:13 | ER Document Report ---
Doctor's Note Notes: 05/21/20 11:12 Psychiatric team has made medication recommendations for the patient they wish Zyprexa 2.5 mg twice daily, Depakote 250 mg twice daily. They wish to discontinue the Abilify and Vistaril. They wish to add Thorazine 50 mg intramuscular every 6 hours as needed.
[2020-05-21] MEDS ORDERED: CHLORPROMAZINE HCL INJ 25 MG/1 ML AMPULE IM PRN (11:14)
[2020-05-21] MEDS: OLANZAPINE 2.5 MG TABLET PO SCH ×2 (11:21→18:01)
[2020-05-21] MEDS: DIVALPROEX SODIUM 250 MG TAB.SR.24H PO SCH ×2 (11:21→18:01)
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
--- NOTE | 2020-05-21 20:29 | RADIOLOGY REPORT (SQ) ---
EXAM DESCRIPTION: CT HEAD WITHOUT IV CONTRAST COMPLETED DATE/TME: 05/21/2020 20:07 CLINICAL HISTORY: 20 years, Female, psychosis COMPARISON: None. TECHNIQUE: Axial images without IV contrast. Sagittal coronal reconstruction. Images stored on PACS. All CT scanners at this facility use dose modulation, iterative reconstruction, and/or weight based dosing when appropriate to reduce radiation dose to as low as reasonably achievable (ALARA). FINDINGS: Normal size ventricles. No evidence for atrophy. No suspicious intra-axial or extra-axial abnormality. Paranasal sinuses, mastoid air cells and bony calvarium are unremarkable. IMPRESSION: Unremarkable noncontrast CT of the head. TECHNICAL DOCUMENTATION: Quality ID # [id number]: Final reports with documentation of one or more dose reduction techniques (e.g., Automated exposure control, adjustment of the mA and/or kV according to patient size, use of iterative reconstruction technique) copyright 2010 [employer]- All Rights Reserved
[2020-05-21 23:08] VITALS: BP 103/66
== END 2020-05-21 23:05 | disposition home or self-care (01) ==
LOC: ER 21:16
DX: R44.0 Auditory hallucinations (principal); R41.82 Altered mental status, unspecified; Z78.1 Physical restraint status
CPT/HCPCS: 93005; 99285; 96372; 36415; 87086; 80307 ×4; 84703; 85025; 80053; 81001; 70450; 93010; J1630; J3490 ×2